=== PATIENT | male | born 1980 | race Caucasian/White ===

== ENCOUNTER 2025-07-23 18:15 | Emergency (ER) | payer BC ==
[2025-07-23] MEDS: LORazepam 2 MG/ML SDV IVPUSH ONE ×5 (18:39→19:54)
[2025-07-23] MEDS: Ondansetron 4 MG/2 ML SDV IVPUSH ONE (18:44)
[2025-07-23] MEDS: levETIRAcetam 500 MG/5 ML SDV IVPUSH ONE (18:46)
[2025-07-23 18:47] LABS: BASOPHILS ABSOLUTE AUTO 0.1 K/mm3 (0.0-0.2); BASOPHILS PERCENT AUTO 0.2 % (0.0-1.0); EOSINOPHILS ABSOLUTE AUTO 0.0 K/mm3 (0.0-0.4); EOSINOPHILS PERCENT AUTO 0.0 % (0.0-6.0); IMMATURE GRAN ABSOLUTE AUTO 0.38 K/mm3 (0.00-0.05); IMMATURE GRAN PERCENT AUTO 1.9 % (0.0-0.4); LYMPHOCYTES ABSOLUTE AUTO 2.0 K/mm3 (1.0-4.8); LYMPHOCYTES PERCENT AUTO 9.7 % (24.0-44.0); MEAN PLATELET VOLUME 8.9 fl (9.4-12.4); MONOCYTES ABSOLUTE AUTO 0.8 K/mm3 (0.0-0.8); MONOCYTES PERCENT AUTO 4.1 % (0.0-8.0); NEUTROPHILS ABSOLUTE AUTO 16.9 K/mm3 (1.8-7.7); NEUTROPHILS PERCENT AUTO 84.1 % (41.0-71.0); NRBC ABSOLUTE 0.11 (0.00-0.02); NRBC PERCENT 0.5 % (0.0-0.2); PLATELET COUNT,PLT 332 K/mm3 (150-400); RED BLOOD CELL COUNT 5.78 M/mm3 (4.52-5.90); WHITE BLOOD CELL COUNT,WBC 20.14 K/mm3 (3.9-11.3)
[2025-07-23] MEDS: diphenhydrAMINE 50 MG/ML SDV IVPUSH ONE ×3 (19:05→22:33)
[2025-07-23 19:09] LABS: INR 1.06
[2025-07-23 19:21] LABS: A/G RATIO 1.4 (1-2); ALANINE AMINOTRANSFERASE,ALT 48.0 U/L (16-63); ASPARTATE AMNIOTRANSFERASE,AST 34.0 U/L (15-37); BILIRUBIN TOTAL 0.6 mg/dL (0.2-1.0); BLOOD UREA NITROGEN,BUN 13.0 mg/dL (7-18); CARBON DIOXIDE,CO2 19.0 mEq/L (21-32); CHLORIDE,CL 101.0 mEq/L (98-107); CREATINE KINASE,CK 154.0 U/L (39-308); CREATININE 1.4 mg/dL (0.7-1.3); EST CRCL DRUG DOSING (CG) 75.3 mL/min; ESTIMATED GFR 63.0 mL/min (>60); GLUCOSE RANDOM 183.0 mg/dL (70-99); POTASSIUM,K 3.5 mEq/L (3.5-5.1); PROTEIN TOTAL,TP 9.4 g/dl (6.4-8.2); SODIUM,NA 147.0 mEq/L (136-145)
[2025-07-23 19:22] LABS: ETHANOL BLOOD MEDICAL 0.0 gm% (0.00)
[2025-07-23] MEDS: LORazepam 2 MG/ML SDV ONE ×4 (19:43→22:42)
[2025-07-23 20:31] LABS: INR 1.03
[2025-07-23 20:32] LABS: PTT,PARTIAL THROMBOPLSTIN TIME 23.4 SECONDS (21.7-31.4)
[2025-07-23] MEDS: diphenhydrAMINE 50 MG/ML SDV ONE (22:29)
[2025-07-23] MEDS: Ketamine 200 MG/20 ML MDV IVPUSH ONE (22:42)
[2025-07-23] MEDS: Ketamine 200 MG/20 ML MDV ONE (22:42)
== END 2025-07-23 23:00 ==
LOC: JD.ED 18:15
DX: R56.9 Unspecified convulsions (principal)
CPT/HCPCS: 36415; 70450; 80053; 80307; 82550; 82947; 83690; 83735; 84484; 85025; 85610; 85730; 87040; 93005; 96361; 96365; 96367; 96375; 96376; 99285; J1200; J1630; J1953; J2060; J2405; J2543; J3373; J3475; J3490; J7030; J7050; 93010; 99291